=== PATIENT | male | born 1970 | race Caucasian/White ===

== ENCOUNTER 2018-09-23 14:42 | Emergency (ER) | payer BC ==
[2018-09-23] MEDS ORDERED: Cyclobenzaprine 10 MG Tab PO ONE (15:22)
[2018-09-23] MEDS ORDERED: Acetaminophen/oxyCODONE 325-5 MG Tab PO ONE (15:22)
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
== END 2018-09-23 16:42 | disposition home or self-care (01) ==
LOC: JP.ED 14:42
DX: M62.830 Muscle spasm of back (principal); V86.99XA Unspecified occupant of other special all-terrain or other off-road motor vehicle injured in nontraffic accident, initial encounter
CPT/HCPCS: 99283; A9270